=== PATIENT | male | born 1990 | race Two or more races ===

== ENCOUNTER 2025-01-05 20:43 | Inpatient (IN) | payer OTHER, SELFPAY ==
[2025-01-05 20:45] VITALS: BMI 24.3
[2025-01-05 21:32] VITALS: BP 157/90; PULSE 72; RESP 19; TEMP 37.7; O2SAT 100
--- NOTE | 2025-01-05 21:36 | XR_ITS ---
Examination: Forearm, left, 2 views. Technique: Forearm, AP, lateral 2 views Date and time of exam: Left January 05, 2025 and p.m. INDICATIONS: Injury to the arm today, arm pain. FINDINGS: Acute fracture proximal ulna, comminuted with marked offset and angulation Dislocation of the radial head Also suspicious on the lateral view for subluxation of the humeral ulnar articulation IMPRESSION: Acute comminuted displaced angulated fracture proximal ulna Dislocation radial head Suspicious for subluxation humeral ulnar articulation
--- NOTE | 2025-01-05 21:36 | XR_ITS ---
Examination: Left elbow 3 views Technique: Elbow AP, oblique, lateral 3 views Exam date and time: January 06, 2020 5:10 PM INDICATIONS: Injury to the elbow today, elbow pain. FINDINGS: Acute comminuted displaced angulated fracture proximal ulna Dislocation radial head On the lateral view is suspicious for subluxation also humeral ulnar articulation IMPRESSION: Acute comminuted displaced angulated fracture proximal ulna Dislocation radial head Suspicious for subluxation humeral ulnar articulation.
--- NOTE | 2025-01-05 21:36 | XR_ITS ---
Examination: Humerus 2 views left Technique: Humerus, AP lateral 2 views Date and time of exam: January 05, 2020 5:10 PM INDICATIONS: Injury at work to the arm, arm pain FINDINGS: No shoulder fracture or dislocation Shaft of the humerus intact IMPRESSION: No fracture of the humerus Please see the elbow report
--- NOTE | 2025-01-05 23:13 | EDNOTE_ITS ---
Upper Extremity Injury RME/HPI General Chief Complaint: Extremity Injury, Lower Stated Complaint: POSS FRACTURE ON LEFT ARM Time Seen by Provider: 01/05/25 21:47 Arrival date/time: 01/05/25 20:43 RME / HPI RME / HPI narrative: This section includes all my notes and documentations, including HPI, PE, and ED course. Jerson Ashton MD HPI: 34 y/o male presents to ED c/o left arm pain and puncture wound s/p getting his arm caught in a metal roller conveyor at work x approximately 4 hours ago. 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 He heard strange noise and noticed a stuck roller. He reached in to fix that and the arm got stuck. He reports severe pain of the left elbow/forearm. Can move and feel the fingers normally. No other injury. No other complaints. ROS: All negative except as documented in HPI. Physical Exam: General: Alert and oriented. In severe pain. Eyes: Conjunctivae and lids clear. ENT: No nasal congestion. Neck: Supple. Lungs: No respiratory distress. Skin: Warm and dry. Small puncture wound in the middle of the left forearm noted. Neuro: Alert and oriented X 3. Left arm: Severe edema and ecchymosis at the elbow and forearm noted. Equivocal deformity. Limited range of motion due to pain. Tight forearm muscles. Distally, no NVT injury. I reviewed all diagnostic test results. My interpretation of the left x-rays is: Comminuted displaced angulated fracture proximal ulna. Dislocation radial head. Blood tests remarkable for WBC 17.2. At this point, diagnoses include: Closed comminuted fracture of proximal end of left ulna Dislocation of left radial head Puncture wound of left forearm Suspicion for pending compartment syndrome Treatment here included reduction under moderate sedation using fentanyl and Versed (see procedure note), wound care, splint application, Ancef, IV fluid, Tdap, Toradol. Post reduction, no NVT injury. I discussed the case with our orthopedic surgeon, Dr. Watson. About the presenta tion and exam and diagnostics and treatments here. And need of further care in the hospital due to possible pending compartment syndrome. Recommended hospitalization. I discussed the case with our hospitalist.? About the presentation and exam and diagnostics and treatments here.? And need of further care in the hospital.? Will accept the patient. Jerson Ashton MD Related Data Allergies Allergy/AdvReac Type Severity Reaction Status Date / Time No Known Allergies Allergy Verified 01/05/25 20:46 Review of Systems Review of Systems Systems Reviewed: All systems reviewed, normal except as documented Past Medical History Social History SMOKING STATUS: Current some day smoker ED Exam Narrative Physical exam: Refer to HPI above Course Quality Measures none Orders Category Date Time Status COVID-19 Screening Questionnaire NOW Care 01/06/25 04:40 Active Decision to Admit X1 Care 01/06/25 04:40 Completed Saline [Insert IV] NOW Care 01/05/25 23:09 Active Splint / Immobilizer STAT Care 01/06/25 01:16 Active Wound Care NOW Care 01/05/25 21:36 Active Consult to Orthopedic Stat Cons 01/06/25 04:39 Ordered XR elbow LT 2V Stat Exams 01/06/25 01:10 Taken XR elbow comp LT min 3V Stat Exams 01/05/25 21:36 Completed XR forearm LT 2V Stat Exams 01/05/25 21:36 Completed XR humerus LT MIN 2V Stat Exams 01/05/25 21:36 Completed CBC Stat Lab 01/05/25 23:29 Completed CMP [Comprehensive Metabolic Panel] Stat Lab 01/05/25 23:29 Completed Magnesium Stat Lab 01/05/25 23:29 Completed PT [Prothrombin Time with INR] Stat Lab 01/05/25 23:29 Completed PTT [Partial Thromboplastin Time] Stat Lab 01/05/25 23:29 Completed Bacitracin Oint pkt Med 01/05/25 23:11 Discontinued 1 gm TOP X1 ONE Ketorolac Inj [Toradol Inj] Med 01/05/25 23:10 Discontinued 30 mg IVP X1 ONE Midazolam Inj [Versed Inj] Med 01/05/25 23:15 Discontinued 5 mg IVP X1 ONE Midazolam Inj [Versed Inj] Med 01/06/25 01:08 Discontinued 5 mg IVP X1 ONE Midazolam Inj [Versed Inj] Med 01/06/25 01:05 Discontinued 6 mg .ROUTE .STK-MED ONE Sodium Chloride 0.9% 1000 ml [Ns] 1,000 ml Med 01/05/25 23:11 Discontinued IV 999 mls/hr TET,DIP/PERT AC (Adult)-Tdap [Boostrix Adult (Tdap) Med 01/05/25 21:36 Discontinued Vacc] 0.5 ml IMI .ONCE ONE ceFAZolin/D5W 2 GM IV [Ancef 2gm Ivpb] Med 01/05/25 23:09 Discontinued 2 gm in 100 ml IV X1 fentaNYL INJ [Sublimaze Inj] Med 01/05/25 23:10 Discontinued 100 mcg IVP X1 ONE Vital Signs Vital signs: Vital Signs Temperature 100 F 01/05/25 21:32 Pulse Rate 72 01/05/25 21:32 Respiratory Rate 19 01/05/25 21:32 Blood Pressure 157/90 H 01/05/25 21:32 Pulse Oximetry (%) 100 01/05/25 21:32 Oxygen Delivery Method Room Air 01/05/25 21:32 Procedures -ED Orthopedic Fracture Reduction Fracture #1: Time Out Performed: Yes Side: left Fracture Reduction Location: radius and ulna Analgesia: procedural sedation Technique: traction/counter-traction Post Reduction X-rays Demonstrate: anatomical reduction Post-reduction neuro exam: intact Post-reduction vascular exam: intact Splint Applied: Yes Patient Tolerated Procedure: well Extremity Injury MDM Narrative MDM Narrative:: Scribe Attestation: Jazmin Jones am scribing for and in the presence of Dr. Ashton. Provider Notation: Although this document has been carefully reviewed, there may still be some phonetic and other typographical errors.? These errors are purely grammatical due to imperfections in the software program and should not be construed in any way to? compromise the substance of the patient's medical care during this visit. 34 y/o male presents to ED c/o left arm pain and puncture wound s/p getting his arm caught in a roller at work x approximately 4 hours ago. 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 patient noticed the roller was stuck, so with his left hand he reached up to toggle the it, when his left arm went in with the conveyer belt. Patient was hired by [employer] for [employer]. No other complaints. Patient data External records reviewed:: [facility] previous records (No prior ED records available for review.) Clinical information provided by:: patient Social determinants that could affect healthcare access:: none Patient has the following chronic illnesses:: None reported How is presenting disease/condition affected by chronic disease/condition?: no chronic disease Evaluation data The following diagnostics were reviewed and interpreted by me:: lab results and radiology exam(s) Lab and/or radiology exams considered but not ordered:: None Interpretation Summary: I reviewed all diagnostic test results. My interpretation of the left x-rays is: Comminuted displaced angulated fracture proximal ulna. Dislocation radial head. Blood tests remarkable for WBC 17.2. Medications / Prescriptions Medications or Prescriptions considered but not ordered:: None Medication administrations:: Medication Administration History Discontinued Medications Bacitracin (Bacitracin Oint 1 Gm Packet) 1 gm TOP X1 ONE Stop: 01/05/25 23:12 Last Admin: 01/06/25 01:59 Dose: Not Given Documented By: KASSI Non-Admin Reason: Cancelled by Provider Diphtheria/Tetanus/Acell Pertussis (Diphth,Pertuss(Acell),Tet Vac 0.5 Ml Syr- Adult) 0.5 ml IMi .ONCE ONE Stop: 01/05/25 21:37 Last Admin: 01/06/25 00:01 Dose: 0.5 ml Documented By: ADAIR Fentanyl Citrate (Fentanyl Cit Inj 50 Mcg/Ml Amp 2ml) 100 mcg IVP X1 ONE Stop: 01/05/25 23:11 Last Admin: 01/06/25 00:59 Dose: 100 mcg Documented By: KASSI Comments: Dr. Ashton performed Cefazolin Sodium (Ancef 2gm Ivpb) 2 gm in 100 mls @ 200 mls/hr IV X1 ONE Stop: 01/05/25 23:38 Last Infusion: 01/06/25 01:05 Dose: Infused Documented By: Admin: 01/06/25 00:03 Dose: 200 mls/hr Documented By: GIOVANY Sodium Chloride (Ns) 1,000 mls @ 999 mls/hr IV .Q1H1M ONE Stop: 01/06/25 00:11 Last Infusion: 01/06/25 01:05 Dose: Infused Documented By: Admin: 01/05/25 23:45 Dose: 999 mls/hr Documented By: ADAIR Ketorolac Tromethamine (Ketorolac Inj 30 Mg/Ml Vial) 30 mg IVP X1 ONE Stop: 01/05/25 23:11 Last Admin: 01/06/25 01:58 Dose: Not Given Documented By: DT Non-Admin Reason: Cancelled by Provider Midazolam HCl (Midazolam Inj 1 Mg/Ml Vial 2 Ml) 5 mg IVP X1 ONE Stop: 01/05/25 23:16 Last Admin: 01/06/25 00:57 Dose: 5 mg Documented By: DT Comments: dr. ashton performed Midazolam HCl (Midazolam Inj 1 Mg/Ml Vial 2 Ml) 5 mg IVP X1 ONE Stop: 01/06/25 01:09 Last Admin: 01/06/25 01:59 Dose: Not Given Documented By: DT Non-Admin Reason: Cancelled by Provider Midazolam HCl (Midazolam Inj 1 Mg/Ml Vial 2 Ml) Confirm Administered Dose 6 mg .ROUTE .STK-MED ONE Stop: 01/06/25 01:06 Last Admin: 01/06/25 01:59 Dose: Not Given Documented By: DT Non-Admin Reason: Cancelled by Provider Treatment here included reduction under moderate sedation using fentanyl and Versed (see procedure note), wound care, splint application, Ancef, IV fluid, Tdap, Toradol. Consultations Consultation(s) initiated? (list below): Yes Consultation #1 (Physician, Specialty, Details): I discussed the case with our orthopedic surgeon, Dr. Watson. About the presentation and exam and diagnostics and treatments here. And need of further care in the hospital due to possible pending compartment syndrome. Recommended hospitalization. Time: 23:05 Diagnosis Upper Extremity Injury Differential Diagnosis: sprain and strain of wrist, fracture of wrist, finger sprain, dislocation of finger, Colles' fracture, fracture of hand, dislocation of shoulder, fracture of humerus and fracture of clavicle Most likely diagnosis given after review of the tests above:: At this point, diagnoses include: Closed comminuted fracture of proximal end of left ulna Dislocation of left radial head Puncture wound of left forearm Suspicion for pending compartment syndrome Admission Indicated Admission indicated?: indicated Explain why admission is indicated or not indicated:: Closed comminuted fracture of proximal end of left ulna Dislocation of left radial head Puncture wound of left forearm Suspicion for pending compartment syndrome Admission Request Was there a request for admission?: Yes Admission Attestation Admission request attestation: Discussed case with Hospitalist service regarding admission. Discussed patients ED course, exam findings, labs, and radiology results. The Hospitalist [agrees] to accept the patient for admission. Disposition Plan Disposition Plan: Admit Discharge Plan Plan Patient Disposition: Admit Acute Care w/in Hospital Prescriptions/Referrals Referrals: No Primary/Family,Physician [Primary Care Provider] - In 1 week Problem List Clinical Impression: Dislocation of left radial head, Closed comminuted fracture of proximal end of left ulna, Puncture wound of left forearm Patient/Caregiver Discharge Instructions Print Language: Guamanian Stand Alone Forms: Ariela Award Info., Patient Portal Info Letter
[2025-01-05 23:43] LABS: Basophils # (Auto) 0.1 Thou/mm3 (0.0-0.2); Basophils % (Auto) 1 % (0-2.5); Eosinophils % (Auto) 0 % (0-10); Hemoglobin 12.2 g/dL (13.5-16.0); Immature Granulocytes % (Auto) 0 % (0-0); Immature Granulocytes Auto 0.07 Thou/mm3 (0.00-0.00); Lymphocytes # (Auto) 1.2 Thou/mm3 (1.0-4.8); Lymphocytes % (Auto) 7 % (10-50); Mean Corpuscular Hemoglobin 26.6 pg (25.0-35.0); Mean Corpuscular Volume 81 fL (80-100); Monocytes # (Auto) 1.1 Thou/mm3 (0.0-0.8); Monocytes % (Auto) 6 % (0-12); Neutrophils # (Auto) 14.7 Thou/mm3 (1.8-7.7); Neutrophils % (Auto) 86 % (37-80); Nucleated Red Blood Cell % 0 /100 WBC (0); Platelet Count 211 Thou/mm3 (140-440); RDW Standard Deviation 43.3 fL (35.1-43.9); Red Blood Count 4.58 Miln/mm3 (4.50-5.90); White Blood Count 17.2 Thou/mm3 (3.8-10.6)
[2025-01-05] MEDS: SODIUM CHLORIDE 0.9% 1000 ML 1,000 ML 999 ML IV (23:45)
[2025-01-06] VITALS (18 sets, daily range): BP systolic 125–158; BP diastolic 62–85; PULSE 38–80; RESP 12–99; TEMP 36.5–37.4; O2SAT 94–99
--- NOTE | 2025-01-06 | XR_ITS ---
Examination: Left elbow 2 views Fluoroscopy January 06, 2025 1253 hours INDICATIONS: Ulnar fractures dislocation radial head, reduction under fluoroscopy today TECHNIQUE AND FINDINGS: AP lateral left elbow Fluoroscopy 19.5 seconds radiation dose 0.39 milligray Dislocation of the radial head remains Displaced proximal ulnar shaft fracture again noted IMPRESSION: Comminuted fracture proximal ulnar shaft Dislocation of the radial head anteriorly
[2025-01-06] MEDS: DIPHTH,PERTUSS(ACELL),TET VAC 0.5 ML SYR- ADULT IMi (00:01)
[2025-01-06] MEDS: ceFAZolin/D5W 2 GM IV 2 GM/100 ML BAG IV (00:03)
[2025-01-06 00:04] LABS: Alanine Aminotransferase 19 U/L (10-49); Albumin, Serum 4.8 gm/dL (3.5-5.0); Albumin/Globulin Ratio 2.1 (1.2-2.2); Alkaline Phosphatase 78 U/L (46-116); Anion Gap 11 (7-16); Aspartate Amino Transferase 46 U/L (0-34); BUN/Creatinine Ratio 11 Ratio (12-20); Bilirubin,Total 0.8 mg/dL (0.3-1.2); Blood Urea Nitrogen 11 mg/dL (9-23); Calcium 8.9 mg/dL (8.3-10.6); Calcium (Corrected) 8.9 mg/dL (8.5-10.1); Carbon Dioxide 24.3 mMol/L (20.0-31.0); Chloride 107 mMol/L (98-107); Estimated Creatinine Clearance 102.6 mL/min (>60); Globulin 2.3 gm/dL (2.3-3.5); Glucose 101 mg/dL (74-106); Osmolality,Calculated 282 (275-295); Sodium 142 mMol/L (136-145); Total Protein 7.1 gm/dL (5.7-8.2); eGFR > 60 See Note
[2025-01-06 00:22] LABS: INR 1.1 (0.9-1.3); Partial Thromboplastin Time 24.8 Seconds (22.0-36.0); Prothrombin Time 12.4 Seconds (9.0-12.2)
[2025-01-06] MEDS: MIDAZOLAM INJ 1 MG/ML VIAL 2 ML 5 MG IVP (00:57)
[2025-01-06] MEDS: fentaNYL CIT INJ 50 mCg/ML AMP 2ML 100 MCG IVP (00:59)
--- NOTE | 2025-01-06 01:10 | XR_ITS ---
Examination: Left forearm 2 views FINDINGS: AP lateral left forearm 2 views Date and time: January 06, 2025 0728 hours INDICATIONS: Post reduction comminuted fracture ulna and dislocation radial head FINDINGS: Limited study, no true lateral view of the forearm Improved alignment of fracture proximal ulna, 6 mm offset of the main fracture fragments On the attempted AP view there remains dislocation of the radial head although less compared to the prior study IMPRESSION: Limited study Significant improvement fracture proximal ulna There remains subluxation of the radial head
--- NOTE | 2025-01-06 05:25 | PD.RESHP ---
Documentation for date of: 01/06/25 HPI History of Present Illness Chief complaint: work injury History of present illness: Dave Mendez is 34 yr male with no significant PMH presenting to ED after work injury. Patient works [employer] for [employer]. 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 He was not able to take it out immediately and required assistance. After removal from the machine, patient denied noticing any bone protrusions. Stated that there was blood loss as is observed dried on his pants. Pain was 9/10 and improved to 5 after receiving pain medication in the ED. He has not had any work injuries in the past. No significant past medical conditions. Denies headache, dizziness, chest pain, abdominal pain, no diarrhea. In ED, vitals are stable. Leukocytosis 17. CMP unremarkable. Imaging of left arm revealed Acute comminuted displaced angulated fracture proximal ulna, Dislocation of radial head, possible subluxation of humeral ulnar joint. Patient was given bolus NS, Tdap, cefazolin 2 g, midazolam 5 mg IV x 1, fentanyl 100 mcg. He had reduction under the sedation of fentanyl and Versed, splint applied. Orthopedics Dr. Watson consulted. Stated to admit patient to monitor and rule out for compartment syndrome and continue IV antibiotics. PMH: Denies PSH: Denies Family Hx: Father has history of diabetes Social: Endorses smoking 1 pack every week for many years. Drinks 1?2 sixpacks per month. Endorses marijuana use, denies illicit drug use. Meds: Denies Allergies: NKDA Review of Systems Review of Systems Systems Reviewed: All systems reviewed, normal except as documented Exam Vital Signs Temp Pulse Resp BP Pulse Ox O2 Del Method O2 Flow Rate 98.6 F 42 L 14 125/85 H 96 Room Air 0 01/06/25 03:00 01/06/25 03:00 01/06/25 03:00 01/06/25 03:00 01/06/25 03:00 01/06/25 03:00 01/06/25 01:29 Narrative Exam General: Young male, no acute distress, cooperative HEENT: NCAT, No JVD noted. Mucosa moist. Pupils are equal and reactive to light bilaterally Cardiovascular: Normal S1 and S2. Regular rate and rhythm. Respiratory: Lungs are clear to auscultation bilaterally. No wheezing or crackles heard. Abdomen: Soft, nontender, not distended, normal bowel sounds. Skin: Warm to touch, dry, no rashes noted Musculoskeletal: Left arm wrapped in splint extending whole arm, able to move all 4 extremities. Able to move left fingertips. No pitting edema Neuro: Alert and oriented x3. No focal neuro deficits. Psych: Normal affect and mood Results: Labs 01/06/25 08:29 01/06/25 08:29 Labs: Short CBC 01/05/25 Range/Units 23:29 WBC 17.2 H (3.8-10.6) Thou/mm3 Hgb 12.2 L (13.5-16.0) g/dL Hct 37.0 L (41.0-53.0) % Plt Count 211 (140-440) Thou/mm3 BMP 01/05/25 23:29 Sodium 142 Potassium 4.0 Chloride 107 Carbon Dioxide 24.3 BUN 11 Creatinine 1.0 Glucose 101 Calcium 8.9 Liver Function 01/05/25 Range/Units 23:29 Total Bilirubin 0.8 (0.3-1.2) mg/dL AST 46 H (0-34) U/L ALT 19 (10-49) U/L Alkaline Phosphatase 78 (46-116) U/L Albumin 4.8 (3.5-5.0) gm/dL Quality Measures Quality Measures none Medications Home Medications and Allergies Allergies Allergy/AdvReac Type Severity Reaction Status Date / Time No Known Allergies Allergy Verified 01/05/25 20:46 Visit Medications Acetaminophen (Acetaminophen 325 Mg Tablet) 650 mg PO Q6H PRN PRN Reason: Fever >100.3 or pain 1-4 Stop: 02/05/25 05:16 Sodium Chloride (Ns) 1,000 mls @ 100 mls/hr IV .Q10H ONE Stop: 01/06/25 15:23 Morphine Sulfate (Morphine Sulf Inj 10 Mg/Ml Vial) 4 mg IVP Q4HR PRN PRN Reason: PAIN SCALE 7-10 (Severe Stop: 01/11/25 05:21 Ondansetron HCl (Ondansetron Inj 2 Mg/Ml Inj 2 Ml) 4 mg IVP Q6H PRN; Protocol PRN Reason: NAUSEA OR VOMITING Stop: 02/05/25 05:16 Sennosides (Senna Tablet) 1 tab PO QDAY PRN; Protocol PRN Reason: constipation Stop: 02/05/25 05:16 Tramadol HCl (Tramadol Hcl 50 Mg Tablet) 50 mg PO Q6HR PRN PRN Reason: PAIN SCALE 4-6 (Moderate Stop: 01/11/25 05:21 Discontinued Medications Bacitracin (Bacitracin Oint 1 Gm Packet) 1 gm TOP X1 ONE Stop: 01/05/25 23:12 Last Admin: 01/06/25 01:59 Dose: Not Given Diphtheria/Tetanus/Acell Pertussis (Diphth,Pertuss(Acell),Tet Vac 0.5 Ml Syr- Adult) 0.5 ml IMi .ONCE ONE Stop: 01/05/25 21:37 Last Admin: 01/06/25 00:01 Dose: 0.5 ml Fentanyl Citrate (Fentanyl Cit Inj 50 Mcg/Ml Amp 2ml) 100 mcg IVP X1 ONE Stop: 01/05/25 23:11 Last Admin: 01/06/25 00:59 Dose: 100 mcg Cefazolin Sodium (Ancef 2gm Ivpb) 2 gm in 100 mls @ 200 mls/hr IV X1 ONE Stop: 01/05/25 23:38 Last Infusion: 01/06/25 01:05 Dose: Infused Sodium Chloride (Ns) 1,000 mls @ 999 mls/hr IV .Q1H1M ONE Stop: 01/06/25 00:11 Last Infusion: 01/06/25 01:05 Dose: Infused Ketorolac Tromethamine (Ketorolac Inj 30 Mg/Ml Vial) 30 mg IVP X1 ONE Stop: 01/05/25 23:11 Last Admin: 01/06/25 01:58 Dose: Not Given Midazolam HCl (Midazolam Inj 1 Mg/Ml Vial 2 Ml) 5 mg IVP X1 ONE Stop: 01/05/25 23:16 Last Admin: 01/06/25 00:57 Dose: 5 mg Midazolam HCl (Midazolam Inj 1 Mg/Ml Vial 2 Ml) 5 mg IVP X1 ONE Stop: 01/06/25 01:09 Last Admin: 01/06/25 01:59 Dose: Not Given Assessment & Plan Plan Dave Mendez is 34 yr male with no significant PMH presenting to ED after work injury. Patient works [employer] for [employer] and [employer]. 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 Orthopedics Dr. Lopez consulted. Stated to admit patient to monitor and rule out for compartment syndrome and continue IV antibiotics. #Acute comminuted displaced angulated fracture proximal ulna #Dislocation or radial head Due to work injury as noted above. Patient underwent reduction with sedation and splint application in the ED. Patient was given bolus NS, Tdap, cefazolin 2 g, midazolam 5 mg IV x 1, fentanyl 100 mcg. - Orthopedics Dr. Watson consulted, appreciate recs ? Monitor symptoms and observe to rule out compartment syndrome ? Pain management IV morphine 4 mg q4hr -IV toradol 30mg IV q6hr prn -IV cefazolin 1g TID -Maintenance fluids x1 # Leukocytosis WBC 17 on admission. Likely reactive due to acute injury. ? IV antibiotics ? Daily CBC Health maintenance: Dispo: med surg, ortho consulted FEN: NPO DVT prophylaxis: SCDs CODE STATUS: Full code The patient's management plan was discussed with my attending physician Dr. Cox. Alta Kendall, PGY-1 Attending Provider Attestation/Addendum I have examined the patient, reviewed labs and imaging findings, discussed the case with the resident(s), and reviewed entered orders. I agree with the plan of care as outlined in this note, with these additional summaries/recommendations: After examination of the patient and review of the clinical data, I feel that this patient needs admission to the hospital for further treatment and evaluation. Patient is a 34-year-old male with no significant past medical history who presents to [facility] emergency department on 01/05/2025 with chief complaint of work injury. Patient seen at bedside. He complains of left arm pain and puncture wound after getting his arm caught in a metal roller conveyor at work. He reports he reached into fix the roller and his arm got stuck. He reports severe pain of the left elbow/forearm although he states he can move his arm and feel his fingers normally. Left elbow x-ray revealed acute comminuted displaced angulated fracture proximal ulna, dislocation of radial head, and subluxation humeral ulnar articulation. In the emergency department ER provider reduced the fracture and patient was placed in a splint. Patient also received Ancef, IV fluids, Tdap, and Toradol. Orthopedics consulted and recommend admission and monitoring for any evidence of compartment syndrome. Continue as needed pain management and IV ceftolozane. Patient updated on the plan and in agreement. Please see residents note for additional details and management. Dr. Brooke MD
[2025-01-06] MEDS: MORPHINE SULF INJ 10 MG/ML VIAL 4 MG IVP ×3 (05:42→19:21)
[2025-01-06] MEDS: ONDANSETRON INJ 2 MG/ML INJ 2 ML 4 MG IVP (05:43)
[2025-01-06] MEDS: SODIUM CHLORIDE 0.9% 1000 ML 1,000 ML 100 ML IV (05:47)
[2025-01-06] MEDS: ceFAZolin/D5W 1 GM IVPB 1 GM/50 ML BAG IV ×3 (05:56→21:03)
--- NOTE | 2025-01-06 07:28 | XR_ITS ---
Examination: Left elbow 2 views TECHNIQUE: AP lateral left elbow 2 views INDICATIONS: Post reduction fractures proximal ulna and radial head dislocation FINDINGS: Comparison January 05, 2025 Comminuted fracture proximal ulna again noted, one shaft width offset and overriding on the lateral view Radial head remains dislocated IMPRESSION: Significant displacement comminuted fracture on the Radial head remains dislocated
--- NOTE | 2025-01-06 07:55 | PD.RESPRO ---
Documentation for date of: 01/06/25 Exam Vital Signs Temp Pulse Resp BP Pulse Ox O2 Del Method O2 Flow Rate 98.6 F 45 L 16 130/73 99 Room Air 0 01/06/25 05:00 01/06/25 05:17 01/06/25 05:17 01/06/25 05:00 01/06/25 05:00 01/06/25 05:00 01/06/25 01:29 Objective Labs 01/06/25 08:29 01/06/25 08:29 Labs: Laboratory Results - last 24 hr 01/05/25 23:29 WBC 17.2 H RBC 4.58 Hgb 12.2 L Hct 37.0 L MCV 81 MCH 26.6 MCHC 33.0 RDW Std Deviation 43.3 Plt Count 211 Neut % (Auto) 86 H Lymph % (Auto) 7 L [place] % (Auto) 6 Eos % (Auto) 0 Baso % (Auto) 1 Neut # (Auto) 14.7 H Lymph # (Auto) 1.2 [place] # (Auto) 1.1 H Eos # (Auto) 0.0 Baso # (Auto) 0.1 Immature Gran # (Auto) 0.07 H Absolute Nucleated RBC 0.00 Immature Gran % 0 Nucleated RBC % 0 PT 12.4 H INR 1.1 APTT 24.8 Sodium 142 Potassium 4.0 Chloride 107 Carbon Dioxide 24.3 Anion Gap 11 BUN 11 Creatinine 1.0 Estim Creat Clear Calc 102.6 eGFR > 60 BUN/Creatinine Ratio 11 L Glucose 101 Calculated Osmolality 282 Calcium 8.9 Corrected Calcium 8.9 Magnesium 2.0 Total Bilirubin 0.8 AST 46 H ALT 19 Alkaline Phosphatase 78 Total Protein 7.1 Albumin 4.8 Globulin 2.3 Albumin/Globulin Ratio 2.1 Quality Measures Quality Measures none Assessment & Plan Assessment Current Active Medications: Generic Name Dose Route Start Last Admin Trade Name Freq PRN Reason Stop Dose Admin Acetaminophen 650 mg 01/06/25 05:17 Acetaminophen 325 Mg Tablet PO 02/05/25 05:16 Q6H PRN Fever >100.3 or pain 1-3 Sodium Chloride 1,000 mls @ 100 mls/hr 01/06/25 05:24 01/06/25 05:47 Ns IV 01/06/25 15:23 100 mls/hr .Q10H ONE Administration Cefazolin Sodium/Dextrose 1 gm in 50 mls @ 100 mls/hr 01/06/25 05:29 01/06/25 05:56 Ancef Ivpb IV 01/13/25 05:28 100 mls/hr Q8HR MALOU Administration Ketorolac Tromethamine 30 mg 01/06/25 05:43 Ketorolac Inj 30 Mg/Ml Vial IVP 01/11/25 05:42 Q6HR PRN pain 4-6 Morphine Sulfate 4 mg 01/06/25 05:22 01/06/25 05:42 Morphine Sulf Inj 10 Mg/Ml Vial IVP 01/11/25 05:21 4 mg Q4HR PRN Administration PAIN SCALE 7-10 (Severe Ondansetron HCl 4 mg 01/06/25 05:17 01/06/25 05:43 Ondansetron Inj 2 Mg/Ml Inj 2 Ml IVP 02/05/25 05:16 4 mg Q6H PRN Administration NAUSEA OR VOMITING Protocol Sennosides 1 tab 01/06/25 05:17 Senna Tablet PO 02/05/25 05:16 QDAY PRN constipation Protocol
--- NOTE | 2025-01-06 09:02 | PC.NURSE ---
MD Wheat at bedside, Pt's heart rate in the 40's. Patient asymptomatic, he states that he does run every day. MD Wheat to order an EKG.
--- NOTE | 2025-01-06 09:03 | EKG_ITS ---
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
--- NOTE | 2025-01-06 09:10 | PD.ORTHCON ---
HPI Consult details Reason for consultation narrative: Left elbow pain History of present illness: Dave is a 34-year-old male with a left elbow injury after getting his hand stuck in a machine yesterday. He was found to have a displaced Monteggia fracture. He reports that there were puncture wounds on the volar aspect of his forearm midway. He was given antibiotics in the emergency room. I was called last night about this and I told the physician that it would be appropriate to reduce the fracture and immobilize it in a splint. I notified the emergency room physician that this can be handled outpatient if he can get an adequate reduction but that he will need close follow-up and antibiotics. I discussed that if you cannot get an adequate reduction That I would recommend a ED to ED transfer to a trauma center. The patient was reduced With sedation overnight but no postreduction x-rays in the splint were obtained. The patient was subsequently admitted overnight for monitoring giving the mechanism of injury for possible compartment syndrome. It was noted that his compartments are soft but they were worried about possible development in the future given the mechanism of injury. I went to see the patient this morning he was very comfortable. I did obtain an x-ray in the splint this morning when I went to see the patient and he was found to be dislocated With a dislocated radial head anteriorly and shortened an apex volar angulation of the ulna. He is neurovascularly intact. Meds Home Medications and Allergies Allergies Allergy/AdvReac Type Severity Reaction Status Date / Time No Known Allergies Allergy Verified 01/05/25 20:46 Exam Vital Signs Temp Pulse Resp BP Pulse Ox O2 Del Method O2 Flow Rate 98.6 F 45 L 16 130/73 99 Room Air 0 01/06/25 05:00 01/06/25 05:17 01/06/25 05:17 01/06/25 05:00 01/06/25 05:00 01/06/25 05:00 01/06/25 01:29 Additional findings Additional findings: Patient is in no acute distress and is cooperative with the examination today. Patient has a normal mood and affect. Breathing is nonlabored. In no respiratory distress. Bilateral extremities were evaluated and demonstrates sensation intact to light touch. He has a palpable radial pulse He is able to give me a thumbs up give me a piece sign and cross his fingers as well as an okay sign indicating that he is neurovascular intact. He has no pain with flexion extension of the wrist as well as Flexion extension of his fingers. Compartments are soft. X-rays reviewed both pre and postreduction. The postreduction film was obtained at 1 AM. It does show a reduced radial head. We did look at at the new films obtained at 7:28 AM. This demonstrates shortening of the ulna and repeat dislocation of the radial head anteriorly. This is With the splint on Results - Ortho Labs 01/05/25 23:29 01/05/25 23:29 Labs: Short CBC 01/05/25 Range/Units 23:29 WBC 17.2 H (3.8-10.6) Thou/mm3 Hgb 12.2 L (13.5-16.0) g/dL Hct 37.0 L (41.0-53.0) % Plt Count 211 (140-440) Thou/mm3 BMP 01/05/25 23:29 Sodium 142 Potassium 4.0 Chloride 107 Carbon Dioxide 24.3 BUN 11 Creatinine 1.0 Glucose 101 Calcium 8.9 Liver Function 01/05/25 Range/Units 23:29 Total Bilirubin 0.8 (0.3-1.2) mg/dL AST 46 H (0-34) U/L ALT 19 (10-49) U/L Alkaline Phosphatase 78 (46-116) U/L Albumin 4.8 (3.5-5.0) gm/dL Assessment & Plan Problem List (1) Closed comminuted fracture of proximal end of left ulna: Status: Acute Assessment and plan: Patient is a 34-year-old male with a grade 1 open Monteggia fracture with persistent anterior dislocation of the radial head and shortening of the ulna after closed reduction in a splint. The patient is now admitted to the hospital and we will be very difficult to transfer. I would recommend repeat closed reduction in the emergency room if possible. I am not sure this is possible as the patient is admitted. If this cannot happen, I would do a closed reduction in the operating room with splinting. I did call the operating room to check availability and I was told I cannot go to the operating room for at least 12 hours which is not ideal. Ideally, I would like the patient to go back to the emergency room where I could get sedation and reduce the patient. If we can get an adequate reduction, this can be managed outpatient. However, if this cannot be done, we may need to repeat reduction in the operating room or possibly transfer the patient to a trauma center. The patient is neurovascularly intact at this time and we will continue compartment checks but he is very comfortable at this time - N.p.o. - Compartment checks every 6 hours - Plan for repeat reduction (2) Puncture wound of left forearm: Status: Acute (3) Dislocation of left radial head: Status: Acute
[2025-01-06 09:14] LABS: Basophils # (Auto) 0.1 Thou/mm3 (0.0-0.2); Basophils % (Auto) 1 % (0-2.5); Eosinophils # (Auto) 0.1 Thou/mm3 (0.0-0.5); Eosinophils % (Auto) 1 % (0-10); Hematocrit 35.4 % (41.0-53.0); Hemoglobin 11.3 g/dL (13.5-16.0); Immature Granulocytes % (Auto) 0 % (0-0); Immature Granulocytes Auto 0.02 Thou/mm3 (0.00-0.00); Lymphocytes # (Auto) 2.9 Thou/mm3 (1.0-4.8); Lymphocytes % (Auto) 29 % (10-50); Mean Corpuscular HGB Conc 31.9 g/dl (31.0-37.0); Mean Corpuscular Hemoglobin 26.7 pg (25.0-35.0); Mean Corpuscular Volume 84 fL (80-100); Monocytes # (Auto) 1.2 Thou/mm3 (0.0-0.8); Monocytes % (Auto) 12 % (0-12); Neutrophils # (Auto) 5.7 Thou/mm3 (1.8-7.7); Neutrophils % (Auto) 57 % (37-80); Nucleated Red Blood Cell % 0 /100 WBC (0); Platelet Count 187 Thou/mm3 (140-440); RDW Standard Deviation 45.1 fL (35.1-43.9); Red Blood Count 4.24 Miln/mm3 (4.50-5.90)
[2025-01-06 09:30] LABS: Alanine Aminotransferase 17 U/L (10-49); Albumin, Serum 4.1 gm/dL (3.5-5.0); Alkaline Phosphatase 68 U/L (46-116); Anion Gap 11 (7-16); Aspartate Amino Transferase 49 U/L (0-34); BUN/Creatinine Ratio 11 Ratio (12-20); Bilirubin,Total 1.1 mg/dL (0.3-1.2); Blood Urea Nitrogen 9 mg/dL (9-23); Calcium 8.3 mg/dL (8.3-10.6); Calcium (Corrected) 8.3 mg/dL (8.5-10.1); Carbon Dioxide 23.2 mMol/L (20.0-31.0); Chloride 107 mMol/L (98-107); Creatinine (Component) 0.8 mg/dL (0.6-1.3); Estimated Creatinine Clearance 141.5 mL/min (>60); Globulin 2.1 gm/dL (2.3-3.5); Glucose 98 mg/dL (74-106); Osmolality,Calculated 279 (275-295); Potassium 3.7 mMol/L (3.4-5.1); Sodium 141 mMol/L (136-145); Total Protein 6.2 gm/dL (5.7-8.2); eGFR > 60 See Note
[2025-01-06 09:48] LABS: Creatine Kinase 1306 U/L (34-171)
--- NOTE | 2025-01-06 10:57 | PC.NURSE ---
10:57 Patient transferred to ICU for Elbow reduction under IV sedation.
--- NOTE | 2025-01-06 11:02 | EVENTNT_ITS ---
Documentation for date of: 01/06/25 Event Note Event Note: Contacted by RN that patient was upgraded to the ICU for closed reduciton under sedation of comminuted fracture of left proximal ulna with subluxation by Orthopedic surgeon Dr. Watson. Plan of care discussed with Attending Dr. Dick Wheat MD PGY 1 Disclaimer: This note was dictated by speech recognition. Minor errors in certified substance abuse counselor may be present due to voice recognition software.
--- NOTE | 2025-01-06 11:19 | PC.NURSE ---
Patient transferred to room 252 at 1058.
[2025-01-06] MEDS: PROPOFOL INJ 10 MG/ML VIAL 20 ML 200 MG IV (12:00)
[2025-01-06] MEDS: SODIUM CHLORIDE 0.9% 1000 ML 1,000 ML 80 ML IV (12:14)
--- NOTE | 2025-01-06 12:16 | ESDS_ITS ---
<Statement entered by Segun Martinez MD - 01/06/25 15:40> Patient was seen and examined at bedside. Agree with assessment and plan in the discharge note. On evaluation of the patient after he had the reduction trial by Dr. Watson the orthopedic surgeon. Patient was noticed to have good motor movement and control. No loss of sensation however he reported numbness. The hand was warm, capillary refill time less than 2 seconds and no signs of compartment syndrome or vascular compromise. At this time we are waiting for transfer as per orthopedic surgeon recommendations to a trauma level of care or elbow orthopedic surgeon within the next 20 to 40 hours. - Patient's plan and care discussed with my attending, Dr. Dick Martinez MD Internal Medicine PGY-2 Planned Discharge Date 01/07/25 DS: Providers Provider Date of admission: 01/06/25 05:17 Primary care physician: Physician No Primary/Family Admitting Provider: Patrick Cox MD Attending Provider on Admission: Patrick Cox MD Consults: 01/06/25 04:39 Consult to Orthopedic Stat Comment: elbow fracture/dislocation Consulting Provider: Thai Watson 01/06/25 08:55 Referral Smoking Cessation Counseling Routine Comment: Smoking Cessation Education Needed 01/06/25 11:08 Referral Physical Therapy Routine Comment: Physician Instructions: Instructions: Left arm fracture Attending Provider on DC: Dannie Jennings MD Discharging Provider: Dusty Wheat MD DS: Diagnosis Problem List Completed Was Problem List Reviewed/Reconciled?: Yes Hospital Course Hospital Course Hospital course: Dave Mendez is 34 yr male with no significant PMH presenting to ED after work injury. Patient works at[employer] for [employer]. 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 He was not able to take it out immediately and required assistance. After removal from the machine, patient denied noticing any bone protrusions. Stated that there was blood loss as is observed dried on his pants. Pain was 9/10 and improved to 5 after receiving pain medication in the ED. He has not had any work injuries in the past. No significant past medical conditions. Denies headache, dizziness, chest pain, abdominal pain, no diarrhea. Imaging of left arm revealed Acute comminuted displaced angulated fracture proximal ulna, Dislocation of radial head, possible subluxation of humeral ulnar joint. He was found to have a displaced Monteggia fracture. He reports that there were puncture wounds on the volar aspect of his forearm midway. He was given antibiotics in the emergency room. On-call orthopedic surgeon, Dr. Watson was called last night about this and he told the physician that it would be appropriate to reduce the fracture and immobilize it in a splint. Dr. Watson notified the emergency room physician that this can be handled outpatient if he can get an adequate reduction but that he will need close follow-up and antibiotics. Dr. Arceiscussed that if you cannot get an adequate reduction That I would recommend a ED to ED transfer to a trauma center. It was believed that the patient had an adequate reduction and was admitted to the hospital for monitoring. It was subsequently found that he had a persistently dislocated fracture this morning. After adequate conscious sedation, the existing splint was removed. The splint was originially in extension. Dr. Watson, orthopedic surgeon inspected the skin and no open fracture can be visualized. He has multiple skin abrasions from getting his hand caught in the machine however. We used fluoroscopy and attempted to reduce the fracture with traction, supination, and flexion. We were unable to get the radial head to reduce and we tried different positions with the aid of fluoroscopy including the elbow in both flexion and 90 and extension as well as pronation and supination. Even when we were able to pull the ulna close to length, the radial head would not reduce. The left radial head was persistently anterior. We thus reduced the ulna as best we could while the radial head remains ant eriorly subluxed. the patient will need a transfer to a trauma center for fixation of this monteggia fracture as the radial head remains not reduced. Patient has no compartment Syndrome at this time and has no pain when he is immobilized. Patient is clinically stable for transfer to trauma center/tertiary center evaluation by an elbow specialist. Discharge diagnosis: 1. Monteggia fracture of left ulna 2. Dislocation of the left radial head 3. Closed comminuted fracture of proximal end of left ulna 4. Leukocytosis Discharge plan: ? Continue cefazolin 1 g IV every 8 hourly ? Pain control as necessary ? Awaiting elbow specialist consultation. We are grateful to be able to participate in Mr. Saldanamedina's care. We wish him the best. Plan of care discussed with Attending Dr. Jennings and PGY2 Dr. Michelle Wheat MD PGY 1 Disclaimer: This note was dictated by speech recognition. Minor errors in manufacturing sales representative may be present due to voice recognition software. Time Spent with Patient Time attestation: Total time spent providing and/or coordinating discharge services: Time spent: Greater than 30 minutes (41) Exam Vital Signs Temp Pulse Resp BP Pulse Ox O2 Del Method O2 Flow Rate 99.3 F 56 L 16 138/62 H 94 L Room Air 0 01/06/25 08:00 01/06/25 08:00 01/06/25 08:00 01/06/25 08:00 01/06/25 08:00 01/06/25 08:00 01/06/25 08:00 Narrative Exam Constitutional Alert, oriented x 3 and comfortable HEENT Vision grossly intact. Patent nares. Trachea midline Respiratory Chest normal on inspection and clear auscultation bilaterally Cardiovascular S1 and S2 audible, RRR. No murmurs carotid bruit. No gross JVD. Abdominal Soft and non tender to palpation in all quadrants. BS + Genitourinary No bladder tenderness, no flank pain. Normal to palpation Musculoskeletal Extremities tone within normal limits. Left arm wrapped in soft cast. Able to make OK sign and thumbs up Neurological CN II - XII grossly intact. Paresthesias and numbness of left fingers. Warm to touch, pulses felt. Skin Warm, dry and intact. No apparent lesions. Psychiatric Patient has good affect, is cooperative Discharge Plan Plan Patient Disposition: Xfer Other Prescriptions/Referrals Referrals: [facility] [Outside] No Primary/Family,Physician [Primary Care Provider] - Patient/Caregiver Discharge Instructions Print Language: Namibian Stand Alone Forms: Ariela Award Info., Patient Portal Info Letter Quality Discharge Quality Measures VTE prophylaxis MD Attestestation MD Attestation I reviewed labs, imaging, EKG, home medications and prior available records. Face to face evaluation was performed by me. I have personally examined the patient and discussed assessment and plan with the IM team. I reviewed the resident note and agree with the plan with exceptions as below. Monteggia fracture of left ulna Dislocation of the left radial head Closed comminuted fracture of proximal end of left ulna Leukocytosis Unsuccessful closed reduction by our orthopedic surgery team Recommended transfer to a trauma center for elbow service Continue prophylactic antibiotics Trend WBC Management of pain as needed PT/OT evaluation Time spent is 40 minutes. More than 50% of the time was spent on patient education and coordination of care.
--- NOTE | 2025-01-06 12:16 | PD.SUROPNT ---
Date of Procedure 01/06/25 Pre Op Diagnosis Left Monteggia fracture Post Op Diagnosis Left Monteggia fracture Procedure Left elbow and forearm close reduction and splint immobilization Findings Monteggia fracture, skin abrasion, Radial head dislocation and proximal ulna fracture Irreducible radial head Procedure Description Indications: Patient is a 34-year-old male with a left Monteggia fracture after getting his arm stuck in the machine. Close reduction was attempted in the emergency room and it was initially thought that there was a good reduction. No lateral of the elbow was taken. The patient was subsequently admitted to the hospital for rule out compartment syndrome. I realized that there was no x-rays in the splint and obtained a repeat x-ray which showed persistent dislocation. At this time, the patient is already admitted. We discussed A repeat closed reduction attempt of the left elbow. communications project lead was used when we discussed that the risk the procedure include persistent dislocation, fracture, and likely need for surgery in the future. It was noted that the patient had multiple skin abrasions and possibly a grade 1 open fracture. He was given antibiotics in the emergency room Given that there was no operating room availability, it was arranged for the patient to be moved to the ICU to attempt a closed reduction with conscious sedation. Signed and witnessed consent was placed in the chart Procedure in detail: After adequate conscious sedation, the existing splint was removed. The splint was originially in extension. we inspected the skin and no open fracture can be visualized. He has multiple skin abrasions from getting his hand caught in the machine however. We used fluoroscopy and attempted to reduce the fracture with traction, supination, and flexion. We were unable to get the radial head to reduce and we tried different positions with the aid of fluoroscopy including the elbow in both flexion and 90 and extension as well as pronation and supination. Even when we were able to pull the ulna close to length, the radial head would not reduce. The left radial head was persistently anterior. We thus reduced the ulna as best we could while the radial head remains anteriorly subluxed. the patient will need a transfer to a trauma center for fixation of this monteggia fracture as the radial head remains not reduced. Anesthesia other (conscious sedation) Pathology / specimen None Pathology comment: none Estimated Blood Loss 150 Condition Stable Disposition other ( the patient should be transferred) Surgeon Thai Watson MD
--- NOTE | 2025-01-06 12:26 | CONPN_ITS ---
Subjective Subjective Brief History: Dave is a 34-year-old male with a left elbow injury after getting his hand stuck in a machine yesterday. He was found to have a displaced Monteggia fracture. He reports that there were puncture wounds on the volar aspect of his forearm midway. He was given antibiotics in the emergency room. I was called last night about this and I told the physician that it would be appropriate to reduce the fracture and immobilize it in a splint. I notified the emergency room physician that this can be handled outpatient if he can get an adequate reduction but that he will need close follow-up and antibiotics. I discussed that if you cannot get an adequate reduction That I would recommend a ED to ED transfer to a trauma center. It was believed that the patient had an adequate reduction and was admitted to the hospital for monitoring. It was subsequently found that he had a persistently dislocated fracture this morning Narrative: we attempted repeat closed reduction and splint placement. We attempted closed reduction under fluoroscopy and found that the radial head was irreducible despite conscious sedation and several different maneuvers. Exam Vital Signs Temp Pulse Resp BP Pulse Ox O2 Del Method O2 Flow Rate 99.3 F 56 L 16 138/62 H 94 L Room Air 0 01/06/25 08:00 01/06/25 08:00 01/06/25 08:00 01/06/25 08:00 01/06/25 08:00 01/06/25 08:00 01/06/25 08:00 Additional findings Additional findings: Patient is in no acute distress and is cooperative with the examination today. Patient has a normal mood and affect. Breathing is nonlabored. In no respiratory distress. Bilateral extremities were evaluated and demonstrates sensation intact to light touch. He has a palpable radial pulse He is able to give me a thumbs up give me a piece sign and cross his fingers as well as an okay sign indicating that he is neurovascular intact. He has no pain with flexion extension of the wrist as well as Flexion extension of his fingers. Compartments are soft. X-rays reviewed both pre and postreduction. He has persistent anterior dislocation of the radial head Objective - Ortho Labs 01/06/25 08:29 01/06/25 08:29 Labs: Laboratory Results - last 24 hr 01/05/25 01/06/25 23:29 08: WBC 17.2 H 10.0 D RBC 4.58 4.24 L Hgb 12.2 L 11.3 L Hct 37.0 L 35.4 L MCV 81 84 MCH 26.6 26.7 MCHC 33.0 31.9 RDW Std Deviation 43.3 45.1 H Plt Count 211 187 Neut % (Auto) 86 H 57 Lymph % (Auto) 7 L 29 [place] % (Auto) 6 12 Eos % (Auto) 0 1 Baso % (Auto) 1 1 Neut # (Auto) 14.7 H 5.7 Lymph # (Auto) 1.2 2.9 [place] # (Auto) 1.1 H 1.2 H Eos # (Auto) 0.0 0.1 Baso # (Auto) 0.1 0.1 Immature Gran # (Auto) 0.07 H 0.02 H Absolute Nucleated RBC 0.00 0.00 Immature Gran % 0 0 Nucleated RBC % 0 0 PT 12.4 H INR 1.1 APTT 24.8 Sodium 142 141 Potassium 4.0 3.7 Chloride 107 107 Carbon Dioxide 24.3 23.2 Anion Gap 11 11 BUN 11 9 Creatinine 1.0 0.8 Estim Creat Clear Calc 102.6 141.5 eGFR > 60 > 60 BUN/Creatinine Ratio 11 L 11 L Glucose 101 98 Calculated Osmolality 282 279 Calcium 8.9 8.3 Corrected Calcium 8.9 8.3 L Magnesium 2.0 Total Bilirubin 0.8 1.1 AST 46 H 49 H ALT 19 17 Alkaline Phosphatase 78 68 Total Creatine Kinase 1306 H Total Protein 7.1 6.2 Albumin 4.8 4.1 D Globulin 2.3 2.1 L Albumin/Globulin Ratio 2.1 2.0 Assessment & Plan Diagnosis (1) Monteggia fracture of left ulna: Status: Acute (2) Dislocation of left radial head: Status: Acute (3) Closed comminuted fracture of proximal end of left ulna: Status: Acute Assessment Additional comments: Patient is a 34-year-old male with a left Monteggia fracture after getting his arm stuck in machinery. He was treated like he had a open fracture. When I remove the splint, I did not see any puncture wounds that which would have appeared from the bone protruding through an open fracture mechanism. He did receive tetanus and antibiotics and was treated with Ancef however for prophylaxis. Unfortunately, we could not reduce his fracture even with the use of fluoroscopy and sedation. The radial head would not reduce was persistently anterior dislocated despite multiple reduction maneuvers. I am the orthopedic surgeon specializing in joint replacement and given that we are having such difficulty reducing the radial head, I am worried that the fracture is irreducible as he has had multiple closed reduction attempts now. I would thus think this patient's complex elbow injury would best be treated by a higher level of care to a trauma surgeon at a trauma center or a elbow specialist. This patient should be transferred which may be a little difficult as the patient was already admitted as the emergency room thought the patient was adequately reduced and that he would he only be here for monitoring. He has no compartment Syndrome at this time and has no pain when he is immobilized Documentation for date of: 01/06/25
--- NOTE | 2025-01-06 12:28 | PC.NURSE ---
at 1152, propofol overridden for anesthesia provider MD Beard for bedside procedure and given by MD Beard, propofol documented as advised per Theodore in pharmacy, see anesthesia record for details
--- NOTE | 2025-01-06 12:43 | PC.SS ---
SS met with patient regarding his d/c plan. Pt is alert/oriented. Pt was admitted for Arm Fracture. Pt confirmed demographic and contact information is correct on facesheet. Pt resides with his sister and brother in law. Pt ambulates independently without assistance or DME. Pt is ok with all ADLs. 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 Pt named his brother in law, Rasheed Guajardo medical decision maker if he is unable. Patient?s choice is to return home upon d/c. D/C plan: Return home Next of Kin: Rasheed Guajardo, brother in law, phone# [phone] Address: Correct on facesheet
--- NOTE | 2025-01-06 14:32 | PC.CC ---
Addendum entered by Karlos Fall RN 01/06/25 19:37: 1927: received call from Roxanne Wei. She is requesting images be sent to [facility], however they are not in [employer] or [employer]. Informed her images were pushed to [facility]. She stated she will ask the ortho surgeon to obtain from [facility]. Addendum entered by Karlos Fall RN 01/06/25 18:32: Workmans Comp contact is Nolvia Gonzalez @ [phone] Addendum entered by Karlos Fall RN 01/06/25 18:15: 1815: transfer packet w/ 1 CD created. Addendum entered by Karlos Fall RN 01/06/25 18:13: 1751: Called [facility] spoke to Keisha. verbal clinical update given. Faxed clinicals to [phone]. She stated to send images via [employer], however, [facility] is not on list. Brandy stated she will follow up with Jane in the am as [facility] was once on the list. Keisha stated she will call back once clinicals are received and reviewed. 1739: called [facility], spoke to Kika. verbal clinical update given. She stated she will reach out to Ortho oncall. she rec: to reach out to [facility] [phone]. Kika stated she will call back with an update. Addendum entered by Karlos Fall RN 01/06/25 17:38: 1733: called Dr. Wheat, update provided. 1724: received call from nurse Rosalie rodriguez, she confirmed receipt of clinicals and images. She will check for bed capacity and reach out to ortho oncall. 1711: called [facility], spoke to Alejandro. She stated she will have the nurse call me back. Addendum entered by Karlos Fall RN 01/06/25 17:05: 1704: images sent through [employer] to [facility] and [facility] Addendum entered by Karlos Fall RN 01/06/25 17:03: 1700: clinicals sent to [facility] and [facility], waiting for responses 1643: received message from Carmina w/ [facility], declining patient due to bed capacity. Addendum entered by Karlos Fall RN 01/06/25 16:34: 1633: Called [facility], per Adri Grewal will call me back with information 1549: received call from Sue / [facility], she declined pt. Dr Mckeon the ortho surg does not perform the procredure required. Addendum entered by Karlos Fall RN 01/06/25 15:21: 1508: received call from Shanon / [facility], she declined pt at this time due to capacity. She stated to reach out every 12 to 24 hours if needed. 1454: called and spoke to Sue / [facility], informed her images were sent through [employer]. She stated she is still waiting for ortho to review the case. She will call me with update. Original Note: 1315: Called [facility] [place] spoke to Sue, she requested to speak to the MD. Call transferred to Dr Jennings. Case was discussed, Sue stated she will review once she receives clinicals and images. Clinicals sent during this conversation. 1258: Called [facility] and spoke to Shanon. Clinicals and images sent during the call. Shanon requested to speak to Dr. Wheat. Call transferred to Dr. Martinez instead. Case was discussed, Shanon stated she will present to the ortho surgeon but to continue to search for other facilities due to lack of bed availability. 1239: received call from Carmina at [facility], she stated she will review but to continue to reach out to other facilities due to lack of med surg bed availability 1230: clinicals sent to [facility], called and left a message on VM 1218: received transfer request for orthopedic surgeon.
--- NOTE | 2025-01-06 15:31 | PC.PT ---
Per RN, patient is xI and ambulatory in his room with no assistance. Will cancel PT eval due to patient is independent.
--- NOTE | 2025-01-06 15:45 | PD.ORTHPN ---
Subjective Subjective Brief History: Dave is a 34-year-old male with a left elbow injury after getting his hand stuck in a machine yesterday. He was found to have a displaced Monteggia fracture. He reports that there were puncture wounds on the volar aspect of his forearm midway. He was given antibiotics in the emergency room. I was called last night about this and I told the physician that it would be appropriate to reduce the fracture and immobilize it in a splint. I notified the emergency room physician that this can be handled outpatient if he can get an adequate reduction but that he will need close follow-up and antibiotics. I discussed that if you cannot get an adequate reduction That I would recommend a ED to ED transfer to a trauma center. It was believed that the patient had an adequate reduction and was admitted to the hospital for monitoring. It was subsequently found that he had a persistently dislocated fracture this morning Narrative: I discussed with the patient that we cannot reduce the fracture. I am worried that this is a irreducible radial head. The patient understands that he will likely be transferred To a trauma surgeon or a elbow specialist Exam Vital Signs Temp Pulse Resp BP Pulse Ox O2 Del Method O2 Flow Rate 98.1 F 80 12 158/80 H 99 Room Air 0 01/06/25 12:00 01/06/25 12:00 01/06/25 12:00 01/06/25 12:00 01/06/25 12:00 01/06/25 12:00 01/06/25 08:00 Objective - Ortho Labs 01/06/25 08:29 01/06/25 08:29 Labs: Laboratory Results - last 24 hr 01/05/25 01/06/25 23:29 08:29 WBC 17.2 H 10.0 D RBC 4.58 4.24 L Hgb 12.2 L 11.3 L Hct 37.0 L 35.4 L MCV 81 84 MCH 26.6 26.7 MCHC 33.0 31.9 RDW Std Deviation 43.3 45.1 H Plt Count 211 187 Neut % (Auto) 86 H 57 Lymph % (Auto) 7 L 29 [place] % (Auto) 6 12 Eos % (Auto) 0 1 Baso % (Auto) 1 1 Neut # (Auto) 14.7 H 5.7 Lymph # (Auto) 1.2 2.9 [place] # (Auto) 1.1 H 1.2 H Eos # (Auto) 0.0 0.1 Baso # (Auto) 0.1 0.1 Immature Gran # (Auto) 0.07 H 0.02 H Absolute Nucleated RBC 0.00 0.00 Immature Gran % 0 0 Nucleated RBC % 0 0 PT 12.4 H INR 1.1 APTT 24.8 Sodium 142 141 Potassium 4.0 3.7 Chloride 107 107 Carbon Dioxide 24.3 23.2 Anion Gap 11 11 BUN 11 9 Creatinine 1.0 0.8 Estim Creat Clear Calc 102.6 141.5 eGFR > 60 > 60 BUN/Creatinine Ratio 11 L 11 L Glucose 101 98 Calculated Osmolality 282 279 Calcium 8.9 8.3 Corrected Calcium 8.9 8.3 L Magnesium 2.0 Total Bilirubin 0.8 1.1 AST 46 H 49 H ALT 19 17 Alkaline Phosphatase 78 68 Total Creatine Kinase 1306 H Total Protein 7.1 6.2 Albumin 4.8 4.1 D Globulin 2.3 2.1 L Albumin/Globulin Ratio 2.1 2.0
--- NOTE | 2025-01-06 17:53 | PC.NURSE ---
MD Jennings asked in person to see if patient can have a diet ordered or snack but per MD Jennings, keep patient NPO for possible transfer for surgery.
[2025-01-07] VITALS (8 sets, daily range): BP systolic 117–145; BP diastolic 58–75; PULSE 45–64; RESP 15–98; TEMP 36.6–37.1; O2SAT 98
[2025-01-07] MEDS: SODIUM CHLORIDE 0.9% 1000 ML 1,000 ML 80 ML IV (00:56)
[2025-01-07] MEDS: ceFAZolin/D5W 1 GM IVPB 1 GM/50 ML BAG IV ×2 (05:06→13:26)
[2025-01-07 05:14] LABS: Basophils # (Auto) 0.1 Thou/mm3 (0.0-0.2); Basophils % (Auto) 1 % (0-2.5); Eosinophils # (Auto) 0.2 Thou/mm3 (0.0-0.5); Eosinophils % (Auto) 2 % (0-10); Hematocrit 38.2 % (41.0-53.0); Hemoglobin 12.2 g/dL (13.5-16.0); Immature Granulocytes % (Auto) 0 % (0-0); Immature Granulocytes Auto 0.02 Thou/mm3 (0.00-0.00); Lymphocytes # (Auto) 2.4 Thou/mm3 (1.0-4.8); Lymphocytes % (Auto) 28 % (10-50); Mean Corpuscular HGB Conc 31.9 g/dl (31.0-37.0); Mean Corpuscular Hemoglobin 26.6 pg (25.0-35.0); Mean Corpuscular Volume 83 fL (80-100); Monocytes % (Auto) 12 % (0-12); Neutrophils # (Auto) 4.9 Thou/mm3 (1.8-7.7); Neutrophils % (Auto) 58 % (37-80); Nucleated Red Blood Cell % 0 /100 WBC (0); Platelet Count 191 Thou/mm3 (140-440); Red Blood Count 4.58 Miln/mm3 (4.50-5.90); White Blood Count 8.5 Thou/mm3 (3.8-10.6)
[2025-01-07] MEDS: MORPHINE SULF INJ 10 MG/ML VIAL 4 MG IVP ×2 (05:19→12:02)
[2025-01-07 05:37] LABS: Alanine Aminotransferase 18 U/L (10-49); Albumin, Serum 4.3 gm/dL (3.5-5.0); Alkaline Phosphatase 71 U/L (46-116); Anion Gap 10 (7-16); Aspartate Amino Transferase 47 U/L (0-34); BUN/Creatinine Ratio 8 Ratio (12-20); Blood Urea Nitrogen 7 mg/dL (9-23); Calcium 8.7 mg/dL (8.3-10.6); Calcium (Corrected) 8.7 mg/dL (8.5-10.1); Carbon Dioxide 26.4 mMol/L (20.0-31.0); Chloride 105 mMol/L (98-107); Creatinine (Component) 0.9 mg/dL (0.6-1.3); Estimated Creatinine Clearance 125.7 mL/min (>60); Globulin 2.2 gm/dL (2.3-3.5); Glucose 75 mg/dL (74-106); Magnesium 1.8 mg/dL (1.6-2.6); Osmolality,Calculated 278 (275-295); Phosphorous 3.2 mg/dL (2.4-5.1); Sodium 141 mMol/L (136-145); Total Protein 6.5 gm/dL (5.7-8.2); eGFR > 60 See Note
--- NOTE | 2025-01-07 08:30 | PD.ORTHCONPN ---
Subjective Subjective Brief History: Dave is a 34-year-old male with a left elbow injury after getting his hand stuck in a machine yesterday. He was found to have a displaced Monteggia fracture. He reports that there were puncture wounds on the volar aspect of his forearm midway. He was given antibiotics in the emergency room. I was called last night about this and I told the physician that it would be appropriate to reduce the fracture and immobilize it in a splint. I notified the emergency room physician that this can be handled outpatient if he can get an adequate reduction but that he will need close follow-up and antibiotics. I discussed that if you cannot get an adequate reduction That I would recommend a ED to ED transfer to a trauma center. It was believed that the patient had an adequate reduction and was admitted to the hospital for monitoring. It was subsequently found that he had a persistently dislocated fracture this morning Narrative: Patient is doing well. His pain remains well-controlled. He is still has anterior subluxation of the radial head anteriorly. He is neurovascular intact and his compartments remain soft. He is very comfortable and is eating when I saw him Exam Vital Signs Temp Pulse Resp BP Pulse Ox O2 Del Method O2 Flow Rate 98.3 F 47 L 15 145/75 H 98 Room Air 0 01/07/25 04:00 01/07/25 04:00 01/07/25 04:00 01/07/25 04:00 01/07/25 04:00 01/07/25 04:00 01/06/25 08:00 Additional findings Additional findings: Patient is in no acute distress and is cooperative with the examination today. Patient has a normal mood and affect. Breathing is nonlabored. In no respiratory distress. Bilateral extremities were evaluated and demonstrates sensation intact to light touch. He has a palpable radial pulse He is able to give me a thumbs up give me a piece sign and cross his fingers as well as an okay sign indicating that he is neurovascular intact. He has no pain with flexion extension of the wrist as well as Flexion extension of his fingers. Compartments are soft. X-rays reviewed both pre and postreduction. He has persistent anterior dislocation of the radial head Objective - Ortho Labs 01/07/25 04:38 01/07/25 04:38 Labs: Laboratory Results - last 24 hr 01/06/25 01/07/25 08:29 04:38 WBC 10.0 D 8.5 RBC 4.24 L 4.58 Hgb 11.3 L 12.2 L Hct 35.4 L 38.2 L MCV 84 83 MCH 26.7 26.6 MCHC 31.9 31.9 RDW Std Deviation 45.1 H 45.0 H Plt Count 187 191 Neut % (Auto) 57 58 Lymph % (Auto) 29 28 [place] % (Auto) 12 12 Eos % (Auto) 1 2 Baso % (Auto) 1 1 Neut # (Auto) 5.7 4.9 Lymph # (Auto) 2.9 2.4 [place] # (Auto) 1.2 H 1.0 H Eos # (Auto) 0.1 0.2 Baso # (Auto) 0.1 0.1 Immature Gran # (Auto) 0.02 H 0.02 H Absolute Nucleated RBC 0.00 0.00 Immature Gran % 0 0 Nucleated RBC % 0 0 Sodium 141 141 Potassium 3.7 4.0 Chloride 107 105 Carbon Dioxide 23.2 26.4 Anion Gap 11 10 BUN 9 7 L Creatinine 0.8 0.9 Estim Creat Clear Calc 141.5 125.7 eGFR > 60 > 60 BUN/Creatinine Ratio 11 L 8 L Glucose 98 75 Calculated Osmolality 279 278 Calcium 8.3 8.7 Corrected Calcium 8.3 L 8.7 Phosphorus 3.2 Magnesium 1.8 Total Bilirubin 1.1 1.0 AST 49 H 47 H ALT 17 18 Alkaline Phosphatase 68 71 Total Creatine Kinase 1306 H Total Protein 6.2 6.5 Albumin 4.1 D 4.3 Globulin 2.1 L 2.2 L Albumin/Globulin Ratio 2.0 2.0 Assessment & Plan Diagnosis (1) Monteggia fracture of left ulna: Status: Acute (2) Dislocation of left radial head: Status: Acute (3) Closed comminuted fracture of proximal end of left ulna: Status: Acute Assessment Additional comments: Patient is a 34-year-old male with a left Monteggia fracture after getting his arm stuck in machinery. He was treated like he had a open fracture. When I remove the splint, I did not see any puncture wounds that which would have appeared from the bone protruding through an open fracture mechanism. He did receive tetanus and antibiotics and was treated with Ancef however for prophylaxis. We are still waiting for transfer for this patient. At this point in time, I think it is very unlikely that this patient will develop compartment syndrome as he is very comfortable.We will continue to monitor him. He is pending transfer as he has a irreducible radial head. I think would be a very unwise decision to manage him outpatiently as well given that he has Worker's Compensation will have a lot of difficulty finding a surgeon for prompt follow-up And has a dislocated radial head. Documentation for date of: 01/07/25
--- NOTE | 2025-01-07 08:56 | PC.CM ---
Addendum entered by Brandy Villeda RN 01/07/25 17:12: I called and set up transport for 1909. I will take packet to telemetry floor. Addendum entered by Brandy Villeda RN 01/07/25 16:26: I called [facility] and I let them know that patient has been accepted by [facility]. Addendum entered by Brandy Villeda RN 01/07/25 16:24: I received a call from Marisol with [facility] transfer center. She states patient has been accepted by Dr. Michele Ferrer (hospitalist) and Dr. Ariana Grider (Ortho). Patient will be going to [facility] at [address] [facility]. Patient will be going to room 417 bed 1. the number to call and give report is [phone] ext. [phone]. I will set up transport. Addendum entered by Brandy Villeda RN 01/07/25 15:34: I received a call from lEida with [facility] in [place]. She let me know they may have a bed available today. She faxed me a transfer back agreement which I completed and faxed back today. Either [facility] or [facility] should have a bed available today. I updated the doctor. Addendum entered by Brandy Villeda RN 01/07/25 11:24: I received a call from Jose Angel at [facility]. Patient has been accepted by Dr. Michele Ferrer Hospitalist at [facility]. They do not have any beds at this time. they will get back to us once a bed opens up. I will update Dr. Wheat. Addendum entered by Brandy Villeda RN 01/07/25 09:50: I received call from Sheba Bruno () and she states she spoke to [facility]. She provided me with the contact number for [facility] [phone]. Original Note: 0840 I called [facility] to follow up on transfer. I spoke to Elida. She states they are going to see if they have any beds available. If they have an available bed they will them call their doctor to present patient. 0800 I received a call from Dr. Wheat stating [facility] doctor spoke to them and he is interested in accepting patient. I reached out to [facility] transfer center and I spoke to Edwin. He states their doctor is interested in accepting patient but he was going to reach out to Dr. Jennings to clarify some questions he had about the patient. He states once the ortho accepts, he will reach out to a hospitalist. If their hospitalist accepts patient, they will then look for an open bed. 07 I received report from fabrication and assembly supervisor. She states [facility] called back and they declined patient stating patient is out of their scope because patient is a level 1. [facility] and [facility] are still interested and working on transfer.
--- NOTE | 2025-01-07 09:22 | PC.SS ---
Follow up note: Pt is higher level of care transfer.
--- NOTE | 2025-01-07 09:56 | PD.RESDS ---
Planned Discharge Date 01/07/25 DS: Providers Provider Date of admission: 01/06/25 13:17 Primary care physician: Physician No Primary/Family Admitting Provider: Patrick Cox MD Attending Provider on Admission: Patrick Cox MD Consults: 01/06/25 04:39 Consult to Orthopedic Stat Comment: elbow fracture/dislocation Consulting Provider: Thai Watson 01/06/25 08:55 Referral Smoking Cessation Counseling Routine Comment: Smoking Cessation Education Needed 01/06/25 12:18 Referral - Elementary Substitute Teacher Stat Service Needed for Transfer: Orthopedics Addl Comments:: Unstable left Monteggia fracture unable to be reduced by in-house Orthopedics. Needs transfer to a Trauma Center for an Elbow specialist Attending Provider on DC: Dannie Jennings MD Discharging Provider: Dusty Wheat MD DS: Diagnosis Problem List Completed Was Problem List Reviewed/Reconciled?: Yes Hospital Course Hospital Course Hospital course: Dave Mendez is 34 yr male with no significant PMH presenting to ED after work injury. Patient works [employer] for [employer]. 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 He was not able to take it out immediately and required assistance. After removal from the machine, patient denied noticing any bone protrusions. Stated that there was blood loss as is observed dried on his pants. Pain was 9/10 and improved to 5 after receiving pain medication in the ED. He has not had any work injuries in the past. No significant past medical conditions. Denies headache, dizziness, chest pain, abdominal pain, no diarrhea. Imaging of left arm revealed Acute comminuted displaced angulated fracture proximal ulna, Dislocation of radial head, possible subluxation of humeral ulnar joint. He was found to have a displaced Monteggia fracture. He reports that there were puncture wounds on the volar aspect of his forearm midway. He was given antibiotics in the emergency room. On-call orthopedic surgeon, Dr. Watson was called last night about this and he told the physician that it would be appropriate to reduce the fracture and immobilize it in a splint. Dr. Watson notified the emergency room physician that this can be handled outpatient if he can get an adequate reduction but that he will need close follow-up and antibiotics. Dr. Arceiscussed that if you cannot get an adequate reduction That I would recommend a ED to ED transfer to a trauma center. It was believed that the patient had an adequate reduction and was admitted to the hospital for monitoring. It was subsequently found that he had a persistently dislocated fracture this morning. After adequate conscious sedation, the existing splint was removed. The splint was originially in extension. Dr. Watson, orthopedic surgeon inspected the skin and no open fracture can be visualized. He has multiple skin abrasions from getting his hand caught in the machine however. We used fluoroscopy and attempted to reduce the fracture with traction, supination, and flexion. We were unable to get the radial head to reduce and we tried different positions with the aid of fluoroscopy including the elbow in both flexion and 90 and extension as well as pronation and supination. Even when we were able to pull the ulna close to length, the radial head would not reduce. The left radial head was persistently anterior. We thus reduced the ulna as best we could while the radial head remains anteriorly subluxed. the patient will need a transfer to a trauma center for fixation of this monteggia fracture as the radial head remains not reduced. Incidentally patient was found to have asymptomatic bradycardia, EKG showed sinus bradycardia with PVC's. 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 Patient has no compartment Syndrome at this time and has no pain when he is immobilized. Patient is clinically stable for transfer, accepted by Orthopedic surgeon Dr. Rodrigues at [facility]. Discharge diagnosis: 1. Monteggia fracture of left ulna 2. Dislocation of the left radial head 3. Closed comminuted fracture of proximal end of left ulna 4. Leukocytosis - resolved 5. Asymptomatic Bradycardia Discharge plan: ? Continue cefazolin 1 g IV every 8 hourly ? Pain control as necessary ? Awaiting elbow specialist consultation. We are grateful to be able to participate in Mr. James's care. We wish him the best. Plan of care discussed with Attending Dr. Dick Wheat MD PGY 1 Disclaimer: This note was dictated by speech recognition. Minor errors in mammographer may be present due to voice recognition software. Time Spent with Patient Time attestation: Total time spent providing and/or coordinating discharge services: Time spent: Greater than 30 minutes (43) Exam Vital Signs Temp Pulse Resp BP Pulse Ox O2 Del Method O2 Flow Rate 98.7 F 50 L 17 122/58 L 98 Room Air 0 01/07/25 08:00 01/07/25 08:00 01/07/25 08:00 01/07/25 08:00 01/07/25 08:00 01/07/25 08:00 01/07/25 08:00 Narrative Exam Constitutional Alert, oriented x 3 and comfortable HEENT Vision grossly intact. Patent nares. Trachea midline Respiratory Chest normal on inspection and clear auscultation bilaterally Cardiovascular S1 and S2 audible, RRR. No murmurs carotid bruit. No gross JVD. Abdominal Soft and non tender to palpation in all quadrants. BS + Genitourinary No bladder tenderness, no flank pain. Normal to palpation Musculoskeletal Extremities tone within normal limits. Left arm wrapped in soft cast, edema of hand. Able to make OK sign and thumbs up Neurological CN II - XII grossly intact. Paresthesias and numbness of left fingers. Warm to touch, pulses felt. Skin Warm, dry and intact. No apparent lesions. Psychiatric Patient has good affect, is cooperative Discharge Plan Plan Patient Disposition: Xfer Other Service Needed for Transfer: Orthopedics Disposition Comment: Maegan Travis Patient condition on transfer: Stable and Benefits outweigh risks Care Plan Goals: ? Continue cefazolin 1 g IV every 8 hourly ? Pain control as necessary ? Awaiting elbow specialist consultation. Prescriptions/Referrals Referrals: [facility] [Outside] No Primary/Family,Physician [Primary Care Provider] - Patient/Caregiver Discharge Instructions Discharge Activity: activity as tolerated Education Materials: ED Elbow Dislocation, ED Forearm Fracture with Reduction Print Language: Danish Stand Alone Forms: Ariela Award Info., Patient Portal Info Letter Discharge Order Discharge Orders: Discharge (Routine); Ordered 01/07/25 Ordered By: Dusty Wheat Quality Discharge Quality Measures VTE prophylaxis Attestestation MD Attestation I reviewed labs, imaging, EKG, home medications and prior available records. Face to face evaluation was performed by me. I have personally examined the patient and discussed assessment and plan with the IM team. I reviewed the resident note and agree with the plan with exceptions as below. Monteggia fracture of left ulna Dislocation of the left radial head Closed comminuted fracture of proximal end of left ulna Leukocytosis Asymptomatic sinus bradycardia Unsuccessful closed reduction by our orthopedic surgery team Recommended transfer to a trauma center for elbow service. Accepted to [facility] in [place] No signs of compartment syndrome. Continue frequent neurovascular checks of the left upper extremity Continue prophylactic antibiotics with cefazolin Trend WBC: Downtrending Management of pain as needed PT/OT evaluation Time spent is 40 minutes. More than 50% of the time was spent on patient education and coordination of care.
--- NOTE | 2025-01-07 17:52 | PC.NURSE ---
report given to Maegan Limon RN. all questions answered, transport for [address] [facility].
== END 2025-01-07 18:50 | disposition other institution (70) | DRG 563 ==
LOC: SERX 01-06 02:49 → SERHOLD 01-06 05:48 → S2NX 01-06 06:50 → S2SX 01-06 11:24 → S2NX 01-06 16:10
PROVIDERS: Orthopaedic Surgery Adult Reconstructive Orthopaedic Surgery; Student in an Organized Health Care Education/Training Program; Admitting Provider Student in an Organized Health Care Education/Training Program; Emergency Provider Emergency Medicine; Visit Provider Student in an Organized Health Care Education/Training Program
PROC: (CPT 25565; principal; 2025-01-06 11:45)
DX: S52.272A Monteggia's fracture of left ulna, initial encounter for closed fracture (principal); D72.829 Elevated white blood cell count, unspecified; F17.210 Nicotine dependence, cigarettes, uncomplicated; F12.90 Cannabis use, unspecified, uncomplicated; I49.3 Ventricular premature depolarization; W31.89XA Contact with other specified machinery, initial encounter; Y92.89 Other specified places as the place of occurrence of the external cause
CPT/HCPCS: 36415; 73060; 73070; 73080; 73090; 76000; 80053; 82550; 83735; 84100; 85025; 85610; 85730; 90471; 90715; 93005; 96361; 96365; 96374; 96375; 99285; J0689; J2250; J2270; J2405; J2704; J3010; J7030